=== PATIENT | female | born 1990 | race Caucasian/White ===

== ENCOUNTER 2022-04-02 15:13 | Outpatient (CLI) | payer MEDICAID, OTHER, SELFPAY | END 2022-04-02 15:14 | disposition home or self-care (01) | PROVIDERS: Visit Provider Nurse Practitioner Family | DX: R19.4 Change in bowel habit (principal); R68.89 Other general symptoms and signs; R11.2 Nausea with vomiting, unspecified | CPT/HCPCS: 84443; 87086 ==